=== PATIENT | male | born 1980 | race Caucasian/White ===

== ENCOUNTER 2018-03-12 11:14 | Emergency (ER) | payer MEDICAID ==
[~2018-03-12] VITALS: Ht 182.9 cm; Wt 87.1 kg
[2018-03-12 11:23] VITALS: Ht 182.9 cm; Wt 87.1 kg
[2018-03-12 14:21] VITALS: BP 126/72
== END 2018-03-12 14:19 | disposition home or self-care (01) ==
LOC: ED 11:14
DX: L02.215 Cutaneous abscess of perineum (principal); F17.210 Nicotine dependence, cigarettes, uncomplicated
CPT/HCPCS: J0696

== ENCOUNTER 2018-07-15 19:51 | Emergency (ER) | payer SELFPAY ==
[~2018-07-15] VITALS: Ht 182.9 cm; Wt 90.3 kg
[2018-07-15 20:05] VITALS: Ht 182.9 cm; Wt 90.3 kg
[2018-07-15 21:36] VITALS: BP 127/86
== END 2018-07-15 21:36 | disposition home or self-care (01) ==
LOC: ED 19:51
DX: G89.29 Other chronic pain (principal); M54.5 Low back pain; F17.210 Nicotine dependence, cigarettes, uncomplicated; M25.561 Pain in right knee
CPT/HCPCS: J1885